=== PATIENT | female | born 1990 ===

== ENCOUNTER 2022-07-03 11:11 | Emergency (ER) | payer OTHER, MEDICAID ==
[~2022-07-03] VITALS: Ht 162.5 cm; Wt 121.1 kg
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
[2022-07-03 12:35] LABS: BILIRUBIN,URINE NEGATIVE (NEGATIVE); CLARITY,URINE SL CLOUDY; COLOR,URINE YELLOW; GLUCOSE, URINE (UA) NEGATIVE (NEGATIVE); KETONES,URINE NEGATIVE (NEGATIVE); LEUKOCYTE ESTERASE ,URINE 1+ (NEGATIVE); NITRITE,URINE NEGATIVE (NEGATIVE); PROTEIN,URINE NEGATIVE (NEGATIVE)
[2022-07-03 12:44] LABS: BACTERIA,URINE LARGE /HPF
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
[2022-07-03] MEDS: TETANUS,DIPTH,PERTUSS P/F (BOOSTRIX) 0.5 ML VIAL IM ONE (13:03)
[2022-07-03] MEDS: CEPHALEXIN 250 MG (KEFLEX) CAP PO ONE (13:04)
[2022-07-03] MEDS: L.E.T. SOLUTION 3 ML SYR TOP ONE (13:04)
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
[2022-07-03] MEDS ORDERED: CEPH500T PO (13:28)
[2022-07-03 13:35] LABS: HEMATOCRIT 48 % (35-52); HEMOGLOBIN 16.2 g/dL (11.5-16.0); MEAN CORPUSCULAR HEMOGLOBIN 28 pg (25-34); MEAN CORPUSCULAR HGB CONC 34 g/dL (32-36); MEAN CORPUSCULAR VOLUME 84 fL (80-99); MEAN PLATELET VOLUME 9.9 fL (9.0-12.2); PLATELET COUNT 179 10^3/uL (130-400); WHITE BLOOD COUNT 10.7 10^3/uL (4.3-11.0)
[2022-07-03] MEDS ORDERED: CYCL10TA25 PO (13:41)
[2022-07-03] MEDS ORDERED: ACHD5005 PO (13:41)
[2022-07-03 13:42] LABS: ALBUMIN 3.7 GM/DL (3.2-4.5); CHLORIDE 110 MMOL/L (98-107); POTASSIUM 3.7 MMOL/L (3.6-5.0)
[2022-07-03 13:43] LABS: SODIUM 141 MMOL/L (135-145)
[2022-07-03 13:44] LABS: CALCIUM 8.4 MG/DL (8.5-10.1)
[2022-07-03 13:45] LABS: GLUCOSE 73 MG/DL (70-105); TOTAL PROTEIN 5.9 GM/DL (6.4-8.2)
[2022-07-03 13:46] LABS: CARBON DIOXIDE 24 MMOL/L (21-32)
[2022-07-03 13:47] LABS: BILIRUBIN,TOTAL 0.3 MG/DL (0.1-1.0)
[2022-07-03 13:48] LABS: ALKALINE PHOSPHATASE 44 U/L (40-136)
[2022-07-03 13:49] LABS: CREATININE SERUM 0.66 MG/DL (0.60-1.30); GFR ESTIMATED 119
[2022-07-03 13:50] LABS: BILIRUBIN,DIRECT 0.1 MG/DL (0.0-0.3); BILIRUBIN,INDIRECT 0.2 MG/DL; BUN/CREATININE RATIO 20
[2022-07-03 13:52] LABS: ALANINE AMINOTRANSFERASE 21 U/L (0-55)
[2022-07-03 14:04] VITALS: BP 122/95
[2022-07-03 14:43] LABS: AMPHETAMINE SCREEN, URINE NEGATIVE (NEGATIVE); BARBITURATE SCREEN URINE NEGATIVE (NEGATIVE); BENZODIAZEPINES SCREEN URINE NEGATIVE (NEGATIVE); CANNABINOID SCREEN, URINE NEGATIVE (NEGATIVE); COCAINE SCREEN URINE NEGATIVE (NEGATIVE); METHADONE STAT NEGATIVE (NEGATIVE); OPIATE SCREEN URINE NEGATIVE (NEGATIVE); OXYCODONE STAT NEGATIVE (NEGATIVE); PROPOXYPHENE STAT NEGATIVE (NEGATIVE); TRICYCLIC ANTIDEPRESSANTS SCRE NEGATIVE (NEGATIVE)
== END 2022-07-03 14:04 | disposition home or self-care (01) ==
LOC: ER 11:17
DX: S01.01XA Laceration without foreign body of scalp, initial encounter (principal); S40.812A Abrasion of left upper arm, initial encounter; S00.412A Abrasion of left ear, initial encounter; N39.0 Urinary tract infection, site not specified; M54.2 Cervicalgia; M54.6 Pain in thoracic spine; Z23 Encounter for immunization; Z28.310 Unvaccinated for COVID-19; V48.5XXA Car driver injured in noncollision transport accident in traffic accident, initial encounter; Y92.410 Unspecified street and highway as the place of occurrence of the external cause
CPT/HCPCS: 12002; 70450; 71045; 72125; 72128; 80048; 80076; 80306; 81000; 84703; 85027; 87088; 93041; 99284; G0480; 36415; 80320; 90715

== ENCOUNTER 2022-07-16 14:43 | Emergency (ER) | payer OTHER, MEDICAID ==
[~2022-07-16] VITALS: Ht 165 cm; Wt 113.0 kg
[~2022-07-16 14:43] MED LIST: ACHD5005 PO; CEPH500T PO; CYCL10TA25 PO
== END 2022-07-16 14:54 | disposition home or self-care (01) ==
LOC: EDUNIT# 14:43 → ER 14:46
DX: Z48.02 Encounter for removal of sutures (principal)